=== PATIENT | female | born 1945 | race African-American/Black ===

== ENCOUNTER → 2021-04-23 | Day surgery (SDC) | payer MEDICARE ==
[~2021-04-23] MED LIST: LIDOCAINE HCL 1% 20ML VIAL (Pyxis) INJ ONE; SODIUM BICARBONATE 4% (2.4MEQ) 5ML VIAL IV ONE
== END | disposition home or self-care (01) ==
LOC: RAD 10:39
PROVIDERS: ATTEND Internal Medicine Endocrinology, Diabetes & Metabolism
DX: R59.0 Localized enlarged lymph nodes (principal); Z79.899 Other long term (current) drug therapy
CPT/HCPCS: 38505; 76942; 88305; A4648; J3490; 19083